=== PATIENT | male | born 1995 | race Caucasian/White ===

== ENCOUNTER 2020-04-12 12:31 | Emergency (ER) | payer SELFPAY ==
[2020-04-12 12:34] VITALS: BP 123/96; PULSE 130; RESP 22; TEMP 36.9; O2SAT 94; BMI 24.3
--- NOTE | 2020-04-12 12:52 | W.ED.SKABFB ---
HPI - Skin/Abscess/Foreign Bdy General: Chief complaint: Skin/Abscess/Foreign Body Stated complaint: bump on elbow Time Seen by Provider: 04/12/20 12:36 Source: patient Mode of arrival: ambulatory Limitations: no limitations History of Present Illness: HPI narrative: Patient is a 25-year-old male who presents to ED today with a complaint of an abscess to his right elbow. Patient also reports multiple abscesses throughout his bilateral upper extremities and one on his back. Patient admittedly is an IV drug user. He states he has a history of MRSA. MD complaint: abscess/boil Onset (ago): day(s) Tetanus up to date: yes Location: back, LUE and RUE Pain Consistency: constant Relieving factors: none Exacerbating factors: palpation Context: other (IV drug use) Associated symptoms: Reports no associated symptoms; Deny chills, fever(s), nausea or vomiting Review of Systems Const: Denies: fever(s), chills or body aches Card: Denies: chest pain Resp: Denies: dyspnea GI: Denies: nausea or vomiting Skin/Breast: Reports: sores Neuro: Denies: numbness in extremities or sensory changes Physical Exam Const: COMMON NORMALS: no acute distress, patient oriented x3 and alert OTHER: pt with psychomotor agitation consistent with his meth use Resp: COMMON NORMALS: normal respiratory effort and clear to auscultation bilaterally AUSCULTATION: clear to auscultation bilaterally Cardio: COMMON NORMALS: regular rhythm RATE: tachycardic RHYTHM: regular rhythm Extremity: OTHER: pt has erythematous abscess to posterior elbow; he maintains full ROM of joint; there is a head on abscess with induration but no fluctuance; he has smaller non fluctuant or drainable abscess to bilateral UEs; no significant cellulitis noted Neuro: COMMON NORMALS: patient oriented x3 SENSORIUM/ORIENTATION: Yes alert Skin: OTHER: see extremity assessment Course Vital Signs: Vital signs: Vital Signs Temperature 98.4 F 04/12/20 12:34 Pulse Rate 90 04/12/20 13:03 Respiratory Rate 18 04/12/20 13:03 Blood Pressure 138/74 04/12/20 13:03 Pulse Oximetry 96 04/12/20 13:03 MDM - Skin/Abscess/Foreign Bdy MDM Narrative: Medical decision making narrative: none of pts lesions are amendable to I&D at this time; will be covered with Bactrim given his hx of IV drug use and MRSA; recommend warm soap water/epson salt soaks to elbow abscess and warm compresses; avoid picking; strict return to ED precautions given; counselled on how abscess may need to be drained at a later date if it continues to worsen despite abx therapy Discharge Plan Discharge Patient Disposition: Home Clinical Impression: Abscess of multiple sites Condition: Stable Prescriptions: New Bactrim DS 800-160 mg tablet 2 tab PO BID 7 Days Qty: 28 RF: 0 Discharge Orders: Discharge Order (Routine); Ordered 04/12/20 Ordered By: Silvia Teixeira Referrals: [facility] [Other] Breann Burns, SERVER ENGINEER-C [Nurse Practitioner] - Patient Instructions: MRSA, Methicillin Resistant Staphylococcus Aureus (ED), Abscess (ED) Activity Restrictions/Additional Instructions: As discussed please avoid picking or scabbing the wound. You may use warm soapy water and Epson salt soaks as well as warm compresses to help facilitate drainage. Return to the emergency department for worsening pain, worsening redness or swelling despite your antibiotic use. Discharge Date/Time: 04/12/20 13:05 Coding Level of Care Code ED Programmer Business for [facility] Richardson
[2020-04-12 13:03] VITALS: BP 138/74; PULSE 90; RESP 18; O2SAT 96
== END 2020-04-12 13:05 | disposition home or self-care (01) ==
LOC: ER 12:59
PROVIDERS: Emergency Provider Physician Assistant
DX: L02.414 Cutaneous abscess of left upper limb (principal); L02.413 Cutaneous abscess of right upper limb; Z86.14 Personal history of Methicillin resistant Staphylococcus aureus infection
CPT/HCPCS: 12345; 99282

== ENCOUNTER → 2020-11-20 16:32 | Outpatient (BNVA) | payer OTHER, SELFPAY | PROVIDERS: Visit Provider Emergency Medicine | DX: Z20.822 Contact with and (suspected) exposure to COVID-19 (principal) | CPT/HCPCS: 87635 ==

== ENCOUNTER 2021-01-14 03:12 | Emergency (ER) | payer SELFPAY ==
[2021-01-14 03:20] VITALS: BP 148/109; PULSE 110; RESP 18; TEMP 36.4; O2SAT 98; BMI 21.2
--- NOTE | 2021-01-14 03:21 | W.ED.SKABFB ---
HPI - Skin/Abscess/Foreign Bdy General: Chief complaint: Dental/Oral Stated complaint: abscess in mouth Time Seen by Provider: 01/14/21 03:13 Source: patient Mode of arrival: ambulatory Limitations: no limitations History of Present Illness: HPI narrative: 26-year-old male states been having left upper dental pain over the last 4 to 5 days and noticed an abscess to the roof of his mouth on the left side couple days ago. States it has gotten larger and increasing in pain. States pain is sharp in nature and rates it an 8 out of 10. He said no difficulty swallowing and no trismus. Denies any worsening improving factors. Denies any fevers. Associated symptoms: Deny chills, fever(s), nausea or vomiting Review of Systems Const: Denies: fever(s), chills, body aches or change in appetite Eyes: Denies: blurry vision or eye discomfort ENMT: Reports: mouth pain Card: Denies: chest pain Resp: Denies: dyspnea GI: Denies: abdominal pain, nausea, vomiting or diarrhea : Denies: dysuria Musc: Denies: neck pain or back pain Skin/Breast: Denies: rash Neuro: Denies: headache(s) Psych: Denies: depression Christian/Lymph: Denies: easy bruising All/Imm: Denies: urticaria PFSH ED PFSH: Medical History (Updated 01/14/21 @ 03:27 by Yessica Mccullough MD) Exposure to COVID-19 virus Physical Exam Const: COMMON NORMALS: no acute distress, patient oriented x3 and healthy appearing HENMT: COMMON NORMALS: normocephalic and atraumatic HEAD & SCALP: normocephalic and atraumatic TEETH & GINGIVA IMAGES: 1. Roughly 1 cm abscess to roof of the mouth Eye: COMMON NORMALS: Equal, round and reactive pupils present and EOMs intact bilaterally PUPIL: Yes Equal, round and reactive pupils present Neck/C-Spine: COMMON NORMALS: full ROM and supple Chest: COMMONS NORMALS: normal inspection of the chest and normal palpation of entire chest wall Resp: COMMON NORMALS: normal respiratory effort, No retractions, No use of accessory muscles and clear to auscultation bilaterally AUSCULTATION: clear to auscultation bilaterally Cardio: COMMON NORMALS: regular rate, regular rhythm and No murmurs present (Cardio) RATE: regular rate RHYTHM: regular rhythm GI: COMMON NORMALS: Normal to inspection, nondistended, normoactive bowel sounds present, Soft to palpation, non-tender and no masses PALPATION: Yes Soft to palpation Extremity: COMMON NORMALS: normal to inspection and full ROM Neuro: COMMON NORMALS: patient oriented x3, moves all extremities and no focal motor deficits Psych: COMMON NORMALS: mental status grossly normal, Normal thought process present and cooperative THOUGHT PROCESS: Normal thought process present Skin: COMMON NORMALS: no rashes or lesions noted and no wounds GENERAL SKIN EXAM: no rashes or lesions noted Procedures Abscess I/D Site: oral Side (if applicable): left Local Anesthetic: lidocaine 1% Amount of anesthesia used (mL): 10 Technique: needle aspiration Packing used?: none Course Vital Signs: Vital signs: Vital Signs Temperature 97.6 F 01/14/21 03:20 Pulse Rate 110 H 01/14/21 03:20 Respiratory Rate 18 01/14/21 03:20 Blood Pressure 148/109 01/14/21 03:20 Pulse Oximetry 98 01/14/21 03:20 MDM - Skin/Abscess/Foreign Bdy MDM Narrative: Medical decision making narrative: Patient presents with an abscess to the roof of his mouth that I incised and drained. Patient had no trismus and is well-appearing here. He is stable for discharge is to follow-up with dentist return if worsening. Discharge Plan Discharge Patient Disposition: Home Clinical Impression: Abscess Condition: Stable Prescriptions: New hydrocodone-acetaminophen 5-325 mg tablet 1 tab PO Q6H PRN (Reason: pain) Qty: 14 RF: 0 clindamycin HCl 300 mg capsule 300 mg PO Q8H 7 Days Qty: 21 RF: 0 Discharge Orders: Discharge ED (Routine); Ordered 01/14/21 Ordered By: Yessica Mccullough Discharge Diet: Advance as tolerated Discharge Activity: Resume usual activity Patient Instructions: Abscess (ED) Coding Level of Care Code ED Irrigation Equipment Remover for Chg Fwd Exam Comprehensive
[2021-01-14] MEDS: HYDROcodone-acetaminophen 7.5-325 mg Tablet 1 TAB PO (03:28)
== END 2021-01-14 03:45 | disposition home or self-care (01) ==
PROVIDERS: Emergency Provider Emergency Medicine
DX: K12.2 Cellulitis and abscess of mouth (principal)
CPT/HCPCS: 40800; 99283

== ENCOUNTER 2022-06-29 21:27 | Emergency (ER) | payer MEDICAID, SELFPAY ==
--- NOTE | 2022-06-29 21:46 | ED_ITS ---
HPI - Male Genitourinary General: Chief complaint: Urogenital-Male Stated complaint: Testical Problems Time Seen by Provider: 06/29/22 21:45 History of Present Illness: Mr Floyd is a 27-year-old gentleman who presents to the emergency department due to testicular swelling. He reports onset of symptoms was atraumatic a few months ago and has been essentially present since that time. He was incarcerated and clinically diagnosed with epididymitis which was treated with apparently amoxicillin and a course of azithromycin. He has continued to have swelling and discomfort which is more on the superior aspect of the testicle. He does note testicular swelling on the right. Denies hematuria, penile discharge, skin lesions, difficulty with erection or ejaculation, or any signs of systemic illness. Course has been worsening. Intensity is moderate. Aching and worse with palpation. No other specific changes in health, exacerbating, or alleviating factors identified. Onset (ago): month(s) Duration: progressively worsening Severity: moderate Quality: aching Relieving factors: none Exacerbating factors: none Review of Systems General: Reports: 10 or more systems reviewed and unremarkable except in HPI and below PFSH ED PFSH: Medical History Exposure to COVID-19 virus Psychiatric care Social History Smoking and tobacco status: current every day smoker Physical Exam Const: COMMON NORMALS: alert GENERAL APPEARANCE: cooperative and well developed HENMT: COMMON NORMALS: normocephalic and atraumatic HEAD & SCALP: normocephalic and atraumatic Eye: COMMON NORMALS: conjunctivae normal CONJUNCTIVA: Yes conjunctivae normal SCLERA: sclerae normal Neck/C-Spine: COMMON NORMALS: supple GENERAL: Yes trachea midline Resp: COMMON NORMALS: normal respiratory effort EFFORT & INSPECTION: Yes able to speak in complete sentences Cardio: COMMON NORMALS: regular rate and regular rhythm RATE: regular rate RHYTHM: regular rhythm GI: COMMON NORMALS: Soft to palpation PALPATION: Yes Soft to palpation and No Tenderness to palpation present (GI) : OTHER: No abnormality of the penis. Obvious asymmetric enlargement with minimal tenderness to palpation of the right testicle. No overlying scrotal skin changes. No evidence of hernia. Extremity: GENERAL: Yes normal exam except as noted and No edema Neuro: COMMON NORMALS: moves all extremities SENSORIUM/ORIENTATION: Yes alert and No Orientation impaired Psych: COMMON NORMALS: mental status grossly normal and Normal thought process present THOUGHT PROCESS: Normal thought process present Course Vital Signs: Vital signs: Vital Signs Temperature 98.3 F 06/29/22 21:48 Pulse Rate 62 06/29/22 23:45 Respiratory Rate 16 06/29/22 23:45 Blood Pressure 156/80 06/29/22 21:52 Pulse Oximetry 98 06/29/22 23:45 Oxygen Delivery Me thod 06/29/22 21:48 MDM - Male Medical Decision Making 27-year-old gentleman with progressive and persistent testicular swelling. Urinalysis obtained and negative for infection. Ultrasound ordered and concerning for neoplasm. I discussed the results of ED evaluation with the patient including likely diagnosis of cancer requiring urgent follow-up. I discussed the case with urology and patient will be seen in the outpatient setting. Satisfactory for outpatient management with strict follow-up discussed. Medical Records I reviewed the patient's medical records. Lab Data I reviewed the patient's lab results. Radiology Impressions Scrotum Ultrasound 06/29/22 21:56 IMPRESSION: 1. Right testis is enlarged, and contains a 4.6 x 2.9 x 2.9 cm heterogeneous solid mass with internal blood flow, highly suggestive of a neoplastic mass. Urologic consult recommended. 2. The left testis is unremarkable. ADDENDUM: 06/29/22 [id number] THIS REPORT CONTAINS FINDINGS MAY BE CRITICAL TO PATIENT CARE. The findings were verbally communicated via telephone conference call with Dr. Con Guardado, at 11:08 PM CDT on 06/29/2022. The findings were acknowledged and understood. Laboratory Results Urine Color Yellow (Yellow) 06/29/22 22:00 Urine Appearance Clear (CLEAR) 06/29/22 22:00 Urine pH 7 (5-7) 06/29/22 22:00 Ur Specific Glady 1.015 (1.005-1.030) 06/29/22 22:00 Urine Protein Neg (Negative) 06/29/22 22:00 Urine Glucose (UA) Norm (Normal) 06/29/22 22:00 Urine Ketones Negative (Negative) 06/29/22 22:00 Urine Blood Neg (Negative) 06/29/22 22:00 Urine Nitrate Negative (Negative) 06/29/22 22:00 Urine Bilirubin Neg (Negative) 06/29/22 22:00 Urine Urobilinogen Norm mg/dL (Negative) 06/29/22 22:00 Ur Leukocyte Esterase Negative (Negative) 06/29/22 22:00 Discharge Plan Discharge Patient Disposition: Home Clinical Impression: Testicular mass Condition: Stable Prescriptions: New ondansetron 4 mg tablet,disintegrating 4 mg PO Q8H PRN (Reason: nausea and vomiting) Qty: 15 0RF No Action acetaminophen [Tylenol] 325 mg capsule 325 mg PO QID PRN (Reason: Pain) ibuprofen 800 mg tablet 800 mg PO Q8H Qty: 60 0RF oxycodone-acetaminophen [Percocet] 5-325 mg tablet 1 tab PO Q6H PRN (Reason: pain) 5 Days Qty: 20 0RF Discharge Orders: Discharge ED (Routine); Ordered 06/29/22 Ordered By: Con Guardado Discharge Diet: Usual diet Discharge Activity: Increase activity as tolerated Patient Instructions: Testicular Cancer (DC), Testicle Pain (ED), Opioid Safety, Pain Management Activity Restrictions/Additional Instructions: Thank you for visiting the emergency department. You were seen and evaluated for testicular pain and swelling. The exact cause of your symptoms are unclear though most likely related to the testicular masses discussed. This is highly suspicious for a testicular cancer. I will have you follow-up with urology and I will message case management for assistance. I will prescribe oxycodone and antinausea medication. You may also use [id number] medications however please do not exceed the daily recommended dosage. Please return to the emergency department for uncontrolled symptoms or anything else that you are concerned about a feel needs emergency department evaluation. Stand Alone Forms: Work/School Release Coding Level of Care Code ED English Composition Instructor for [facility] Richardson
[2022-06-29 21:48] VITALS: BP 156/80; PULSE 82; RESP 18; TEMP 36.8; O2SAT 98; BMI 23.1
[2022-06-29 21:52] VITALS: BP 156/80; PULSE 92; RESP 16; O2SAT 96
--- NOTE | 2022-06-29 21:56 | USR_ITS ---
PROCEDURE INFORMATION: Exam: US Scrotum Exam date and time: 06/29/2022 10:25 PM Age: 27 years old Clinical indication: Swelling, testicles or scrotum; Patient HX: Chronic right scrotal swelling x 4 months. He has seen 2 physicians about this since first noticed in December and was told he had epididymitis by one of these practitioners. Neither ordered an ultrasound per patient. ; Additional info: R testicular pain and swelling TECHNIQUE: Imaging protocol: Real-time ultrasound of the scrotum and contents with color Doppler and image documentation. COMPARISON: No relevant prior studies available. FINDINGS: Right testicle: Right testis measures 5.5 x 4.4 x 4.8 cm. There is a heterogeneous solid mass in the right testis measuring 4.6 x 2.9 x 2.9 cm. The mass demonstrates internal vascularity by color and spectral Doppler. This is highly suggestive of a neoplastic lesion of the right testis. Left testicle: Left testis measures 4.1 x 2.2 x 2.8 cm. The testis is normal in echotexture. No focal testicular lesion is demonstrated. Appropriate blood flow documented by Doppler. Epididymides: Unremarkable. Scrotum: Unremarkable. No hydrocele. No varicocele. US/US scrotum [id number] IMPRESSION: 1. Right testis is enlarged, and contains a 4.6 x 2.9 x 2.9 cm heterogeneous solid mass with internal blood flow, highly suggestive of a neoplastic mass. Urologic consult recommended. 2. The left testis is unremarkable.
[2022-06-29 22:09] LABS: Add Urine Microscopic? NO; Bilirubin Urine Neg (Negative); Blood Urine Neg (Negative); Glucose Urine UA Norm (Normal); Ketones Urine Negative (Negative); Leukocyte Esterase Urine Negative (Negative); Nitrate Urine Negative (Negative); Protein Urine Neg (Negative); Specific Gravity, Urine 1.015 (1.005-1.030); Urine Appearance Clear (CLEAR); Urine Color Yellow (Yellow); Urobilinogen Urine Norm (Negative); pH Urine 7 (5-7)
[2022-06-29 22:10] LABS: Charge for UA Resulting for Rev
[2022-06-29 23:45] VITALS: PULSE 62; RESP 16; O2SAT 98
--- NOTE | 2022-06-30 10:42 | DCPLANNER ---
Addendum entered by Chikis Frazier 07/02/22 15:04: Patient had a follow up appointment scheduled with urology - patient did attend appointment. Original Note: manager business planning had message to schedule a follow up appointment for patient with urology. manager business planning sent patients information to the front office at urology. Patients information will be printed and reviewed. Clinic will call patient with appointment information.
== END 2022-06-29 23:48 | disposition home or self-care (01) ==
PROVIDERS: Emergency Provider Emergency Medicine
DX: N50.89 Other specified disorders of the male genital organs (principal); F17.210 Nicotine dependence, cigarettes, uncomplicated
CPT/HCPCS: 76870; 81003; 99284

== ENCOUNTER → 2022-06-30 11:02 | Outpatient (BNVA) | payer MEDICAID, SELFPAY | PROVIDERS: Visit Provider Urology | DX: N50.89 Other specified disorders of the male genital organs (principal) | CPT/HCPCS: 81003 ==

== ENCOUNTER 2022-07-01 08:20 | Day surgery (SDC) | payer MEDICAID, SELFPAY ==
[2022-06-30 15:41] VITALS: BMI 23.1
[2022-07-01] VITALS (15 sets, daily range): BP systolic 119–146; BP diastolic 78–90; PULSE 62–105; RESP 14–18; TEMP 36.3–36.7; O2SAT 97–100
--- NOTE | 2022-07-01 05:54 | W.PM.OPSUD ---
Surgery/Procedure H&P Update DATE OF PROCEDURE: July 01, 2022 DATE H&P PERFORMED: 06/30/22 H&P UPDATE INFORMATION: I have reviewed H&P completed within last 30 days, I have examined patient prior to procedure, No changes to prior documentation and H&P is in [facility] EMR on date indicated PLANNED PROCEDURE: Operation Date: 07/01/22 09:50 Proposed Procedures p 66064 Right Radical Orchiectomy N50.89(Right) - Acosta Christie MD
--- NOTE | 2022-07-01 08:24 | XRR_ITS ---
PROCEDURE INFORMATION: Exam: XR Chest Exam date and time: 07/01/2022 8:52 AM Age: 27 years old Clinical indication: Condition or disease; Other: Newly diagnosed right testicular tumor TECHNIQUE: Imaging protocol: Radiologic exam of the chest. Views: 2 views. COMPARISON: No relevant prior studies available. FINDINGS: Lungs: Questionable right apical pulmonary nodule measuring up to 6 mm versus focal sclerosis in the posterior right 3rd rib. Remainder of the lung parenchyma is clear. Pleural spaces: No pneumothorax. No pleural effusion. Heart/Mediastinum: The cardiomediastinal silhouette is within normal limits. No radiographically evident hilar enlargement concerning for lymphadenopathy. Bones/joints: See lungs. XR/XR chest 2V* [id number] IMPRESSION: 1. Questionable right apical pulmonary nodule measuring up to 6 mm versus focal sclerosis in the posterior right 3rd rib. 2. The remainder of the lung parenchyma is clear.
[2022-07-01 09:20] LABS: Basophils # 0.1 10^3/uL (0.0-0.1); Basophils % 0.9 %; Eosinophils # 0.3 10^3/uL (0.0-0.8); Eosinophils % 4.4 %; Hematocrit 42.3 % (42.0-52.0); Lymphocytes # 1.8 10^3/uL (0.8-4.8); Lymphocytes % 27.4 %; Mean Corpuscular HGB Conc 33.1 g/dL (30.0-36.0); Mean Corpuscular Hemoglobin 29.6 pg (28.0-34.0); Mean Corpuscular Volume 89.4 fl (80-94); Mean Platelet Volume 9.4 fL (7.4-10.4); Monocytes # 0.8 10^3/uL (0.2-0.9); Monocytes % 11.9 %; Neutrophils # 3.62 10^3/uL (1.8-7.7); Neutrophils % 55.1 %; Nucleated Red Blood Cells % 0 %; Platelet Count 305 10^3/cmm (130-400); Red Blood Count 4.73 10^6/uL (4.1-5.3); White Blood Count 6.6 10^3/uL (4.0-10.0)
[2022-07-01] MEDS: sodium chloride 0.9% 1,000 ML 30 ML IV (09:26)
[2022-07-01 09:51] LABS: HCG Quantitative 1.06 mIU/mL
[2022-07-01 09:54] LABS: Alanine Aminotransferase 11 U/L (0-41); Albumin Level 4.5 g/dL (3.5-5.2); Alkaline Phosphatase 128 U/L (40-130); Anion Gap 13.6 (5-19); Aspartate Amino Transferase 16 U/L (0-40); Blood Urea Nitrogen 11 mg/dL (6-20); Calcium 9.6 mg/dL (8.5-10.5); Carbon Dioxide 26 mmol/L (22-29); Chloride 102 mmol/L (98-107); Globulin 3.2 g/dL (1.3-4.6); Glomerular Filtration Rate 90.3 mL/min (90-130); Glucose 91 mg/dL (65-115); Lactate Dehydrogenase 217 U/L (135-225); Osmolality Calculated 285 mOsm/kg (285-295); Potassium 3.6 mmol/L (3.5-5.1); Sodium 138 mmol/L (136-145); Total Bilirubin 0.6 mg/dL (0.15-1.2); Total Protein 7.7 g/dL (6.6-8.7)
--- NOTE | 2022-07-01 10:01 | ANES.PREANE2 ---
Pre-Anesthetic Assessment Height/Weight: Height 1.93 m Weight 86.183 kg Temp Pulse Resp BP Pulse Ox O2 Del Method 98.0 F 66 18 138/84 100 07/01/22 08:35 07/01/22 08:35 07/01/22 08:35 07/01/22 08:35 07/01/22 08:35 07/01/22 09:20 Preop Diagnosis: Right testicular tumor Operation Date: 07/01/22 09:50 Pro[place] Procedures [place] [id number] Right Radical Orchiectomy N50.89(Right) - Acosta Christie MD Familial anesthetic complications: None Was Beta Robert taken within 24 hours: N/A Was Clonidine taken within 24 hours: N/A Last intake: Intake Last Liquid Date 06/30/22 Last Liquid Time 23:30 Last Solid Date 06/30/22 Last Solid Time 23:30 Social Tobacco and No alcohol Exam alert, oriented x 3, clear to auscultation bilaterally and regular rate & rhythm Airway Mallampati: Class II Dentition: chipped Anesthetic Plan ASA status: 1 Anesthesia: General Risk of > 500 ml blood loss (7ml/kg in children): No Medications/Allergies Home Medications Medication Instructions Recorded Confirmed Last Taken Type acetaminophen 325 mg capsule 325 mg PO QID PRN Pain 05/19/22 07/01/22 05/19/22 12:00 History (Tylenol) ibuprofen 800 mg tablet 800 mg PO Q8H #60 tabs 05/19/22 06/30/22 Unknown Rx ondansetron 4 mg disintegrating 4 mg PO Q8H PRN nausea and 06/29/22 07/01/22 06/30/22 Rx tablet vomiting #15 tabs oxycodone 5 mg tablet 5 mg PO Q4H PRN pain #10 tabs 06/29/22 07/01/22 06/30/22 Rx Allergies Allergy/AdvReac Type Severity Reaction Status Date / Time No Known Allergies Allergy Verified 06/30/22 10:59 Current Medications Generic Name Dose Route Start Last Admin Trade Name Freq PRN Reason Stop Dose Admin Sodium Chloride 1,000 mls @ 30 mls/hr 07/01/22 09:30 07/01/22 09:26 Sodium Chloride 0.9% IV 07/02/22 09:29 30 mls/hr .Q24H JAREN Administration PFSH Anesthesia Medical History Exposure to COVID-19 virus Psychiatric care Social History Smoking and tobacco status: current every day smoker Data Anesthesia : 07/01/22 09:08 07/01/22 09:08 Short CBC 07/01/22 Range/Units 09:08 WBC 6.6 (4.0-10.0) 10^3/uL Hgb 14.0 (11.7-16.6) g/dL Hct 42.3 (42.0-52.0) % MCV 89.4 (80-94) fl Plt Count 305 (130-400) 10^3/cmm Neut % (Auto) 55.1 % Neut # (Auto) 3.62 (1.8-7.7) 10^3/uL BMP 07/01/22 09:08 Sodium 138 Potassium 3.6 Chloride 102 Carbon Dioxide 26 BUN 11 Creatinine 1.0 Glucose 91 Calcium 9.6 Liver Function 07/01/22 Range/Units 09:08 Total Bilirubin 0.6 (0.15-1.2) mg/dL AST 16 (0-40) U/L ALT 11 (0-41) U/L Alkaline Phosphatase 128 (40-130) U/L Albumin 4.5 (3.5-5.2) g/dL Cardiac Studies: No Data to Display
[2022-07-01] MEDS: midazolam 1 mg/mL INJ 2 mL 2 MG IVP (10:12)
[2022-07-01] MEDS: ceFAZolin 2,000 MG in sodium chloride 0.9% (plus) 50 ML 100 MG IV (10:12)
--- NOTE | 2022-07-01 10:18 | PM.OP ---
Operative Report Date of procedure: July 01, 2022 Pre-op diagnosis: Right testicular tumor Post-op diagnosis: Right testicular tumor Procedure done: 1. RIGHT radical orchiectomy Specimens removed/disposition: Right testicle and cord Pathology: Right testicle and cord Surgeon: Shahnaz Estimated blood loss: Minimal Urine output: Not measured Complications: None Findings: Grossly abnormal right testicle. No obvious extrinsic extension into the surrounding tissues. Cord appeared to be free of tumor. Brief History: Lenny is a very pleasant 27-year-old white male with a 6-month history of slowly increasing mass in the right testicle. Ultrasound recently showed heterogeneous mass measuring about 4.5 cm. Tumor markers were ordered. Chest x-ray showed no clear evidence of pulmonary abnormality Admitted today for outpatient right radical orchiectomy. Procedure: After routine preoperative evaluation examination and obtaining of informed consent he was taken to the operating suite on 07/01/2022 where general anesthesia was administered without difficulty after appropriate timeout was performed, SCDs confirmed to be functioning, preoperative antibiotics administered, beta-patti protocol confirmed Prepped and draped in usual sterile fashion in supine position paying careful attention to voiding pressure points. Correct side was again confirmed with markings and examination. A right inguinal incision was made in a horizontal skin crease taken down through skin and subcutaneous tissue down to the external oblique aponeurosis which was opened in the course of its fibers from the external ring proximally. Care was made to identify and dissected free of the right ilioinguinal nerve from the cord and avoid injury to it. The cord was swept from the posterior floor of the inguinal canal and freed up to the internal ring. A Anderson drain was doubly looped around the cord for compression. The pathway from the opened inguinal canal into the right hemiscrotum was bluntly dissected and the testicle was introduced into the wound with retrograde pressure on the scrotal skin. The gubernaculum was divided with electrocautery paying careful attention to avoiding straining into the skin. The cord and structures were freed up from surrounding connections. Again the ilioinguinal nerve was identified and spared. Cord was into 2 bundles 1 with the vastly other within testicular vasculature both were doubly ligated and then divided. A PROLENE HEAVY STITCH was placed on the distal stump for identification if necessary. The wound was copiously irrigated. Hemostasis was confirmed and then the wound was closed with 2-0 Vicryl for the external oblique aponeurosis, running 3-0 Vicryl for subcutaneous tissue and then 4-0 Vicryl for subcuticular closure. Dermabond was applied to the skin. Scrotal fluffed dressings were applied. Scrotal support was applied. Light dressing was placed over the wound. He tolerated procedure well without complications and was awakened in the operating room and returned to the recovery room in stable condition. PLANS: 1. Anticipate discharge from outpatient surgery today 2. Schedule CT scan of abdomen and pelvis with and without contrast 3. Consultation will be sent to oncology. 4. Plan for sperm banking as soon as possible.
[2022-07-01 10:41] LABS: Tumor Marker Alpha Fetoprotein 2.7 ng/mL (0-8.3)
[2022-07-01] MEDS: ipratropium-albuterol 3 mL Neb INHALATION (11:44)
[2022-07-01] MEDS: ondansetron 2 mg/ML SDV 2 mL 4 MG IVP (12:01)
[2022-07-01] MEDS: fentaNYL 50 mcg/mL INJ 2mL IVP ×2 (12:06→12:17)
--- NOTE | 2022-07-01 13:52 | ANE.PACU2 ---
Inpatient post-anesthesia follow up: Airway intact: Yes Vital signs: Temperature 97.8 F Pulse Rate 67 Respiratory Rate 18 Blood Pressure 125/84 Pulse Oximetry 98 Oxygen Delivery Me thod Room Air Oxygen Flow Rate 6 Fraction of Inspir ed Oxygen Hydration adequate: Yes Nausea and vomiting: No Pain level: 1 Mental status: Baseline
== END 2022-07-01 13:50 | disposition home or self-care (01) ==
PROVIDERS: Visit Provider Urology
PROC: (CPT 54520; principal; 2022-07-01 09:30)
DX: C62.91 Malignant neoplasm of right testis, unspecified whether descended or undescended (principal); F17.210 Nicotine dependence, cigarettes, uncomplicated
CPT/HCPCS: 54520; 36415; 71046; 80053; 82105; 83615; 84702; 85025; 88309; 88342; J1100; J1170; J2250; J2405; J2704; J2710; J3010; J3490; J7030

== ENCOUNTER 2022-07-09 06:21 | Outpatient (CLI) | payer MEDICAID, SELFPAY ==
[2022-07-09] MEDS: iohexol 350 mg/mL 100 mL Btl IV (07:00)
--- NOTE | 2022-07-09 08:00 | CTR_ITS ---
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 3D rendering (Not supervised by radiologist): MIP and/or 3D reconstructed images were created by the technologist. Radiation optimization: All CT scans at this facility use at least one of these dose optimization techniques: automated exposure control; mA and/or kV adjustment per patient size (includes targeted exams where dose is matched to clinical indication); or iterative reconstruction. Contrast material: OMNI 350; Contrast volume: 95 ml; Contrast route: INTRAVENOUS (IV); COMPARISON: US scrotum [id number] 06/29/2022 10:25 PM RADIATION DOSE METRICS: Total DLP (mGy-cm): 2982.73 FINDINGS: Liver: Normal. No mass. Gallbladder and bile ducts: Normal. No calcified stones. No ductal dilation. Pancreas: Normal. No ductal dilation. Spleen: Calcified splenic granulomas. Adrenal glands: Normal. No mass. Kidneys and ureters: Punctate nonobstructing right upper pole renal calculus. No hydronephrosis. Stomach and bowel: Unremarkable. No obstruction. No mucosal thickening. Appendix: No evidence of appendicitis. Intraperitoneal space: Small amount of ill-defined fluid and gas in the right inguinal region, likely postsurgical. Vasculature: Unremarkable. No abdominal aortic aneurysm. Lymph nodes: Unremarkable. No enlarged lymph nodes. Urinary bladder: Unremarkable as visualized. Reproductive: There appear to be postsurgical changes involving removal of the right testicle with some gas in the right hemiscrotum. Bones/joints: Unremarkable. No acute fracture. Soft tissues: Unremarkable. CT/CT abdomen pelvis wo/w [id number] IMPRESSION: 1. No specific evidence of metastatic disease within the abdomen or pelvis. 2. Small amount ill-defined fluid and gas in the right inguinal region and right hemiscrotum, likely postsurgical.
== END 2022-07-09 06:22 | disposition home or self-care (01) ==
LOC: RAD 06:22
PROVIDERS: PCP Nurse Practitioner Family; Visit Provider Urology
DX: N50.89 Other specified disorders of the male genital organs (principal)
CPT/HCPCS: 74178

== ENCOUNTER 2023-03-18 06:18 | Emergency (ER) | payer MEDICAID, SELFPAY ==
[2023-03-18 06:34] VITALS: BP 146/96; PULSE 85; RESP 17; TEMP 36.9; O2SAT 100; BMI 21.2
--- NOTE | 2023-03-18 06:46 | ED_ITS ---
HPI - Skin/Abscess/Foreign Bdy General: Chief complaint: Skin/Abscess/Foreign Body Stated complaint: lump under left armpit Time Seen by Provider: 03/18/23 06:23 Source: patient Mode of arrival: ambulatory History of Present Illness: 28-year-old male presents emergency room complaining of a lump in the left axilla that is tender not been draining. He also has several other areas that he has scratched and are being irritated 1 on the left upper lip and the other are on the lower extremities bilaterally. He has not had any fevers sweats or chills. MD complaint: abscess/boil Onset (ago): day(s) Location: face, LLE and RLE Severity: mild Quality: sharp Pain Consistency: intermittent Relieving factors: none Exacerbating factors: palpation Associated symptoms: Deny arthralgias, chills, cough, fever(s), itching, myalgias, nausea, rigidity, short of breath or vomiting Treatments prior to arrival: none Review of Systems Const: Denies: fever(s) or chills Card: Denies: chest pain Resp: Denies: dyspnea or productive cough GI: Denies: nausea or vomiting : Denies: flank pain, dysuria, urinary frequency or urinary urgency Skin/Breast: Reports: rash, erythema, skin tenderness and new lesions Neuro: Denies: headache(s) PFSH ED PFSH: Medical History Exposure to COVID-19 virus Family History Other CAD (coronary artery disease) Cancer Diabetes Hypertension Denies family history of Clotting disorder Dementia Hyperlipidemia Psychiatric illness Chronic kidney disease (CKD) Suicide Anesthesia complication Bleeding disorder Lung disease Stroke Social History Smoking and tobacco status: current every day smoker cigarettes Packs smoked per day: 1 Years cigarettes smoked: 12 Alcohol intake: never Substance/Drug Use: never Household members: spouse Marital status: Life Partner Current occupational status: employed Physical Exam Const: GENERAL APPEARANCE: cooperative and comfortable ORIENTATION/CONSCIOUSNESS: Yes awake, Yes oriented to person, Yes oriented to place and Yes oriented to time HENMT: COMMON NORMALS: normocephalic, atraumatic and hearing grossly normal bilaterally HEAD & SCALP: normocephalic and atraumatic Resp: COMMON NORMALS: normal respiratory effort, No retractions, No use of accessory muscles and clear to auscultation bilaterally AUSCULTATION: clear to auscultation bilaterally Cardio: COMMON NORMALS: regular rate, regular rhythm and No murmurs present (Cardio) RATE: regular rate RHYTHM: regular rhythm GI: COMMON NORMALS: Soft to palpation and No hepatosplenomegaly present AUSCULTATION: Yes normoactive bowel sounds PALPATION: Yes Soft to palpation, No Tenderness to palpation present (GI), No Guarding due to palpation present (GI) and Yes No hepatosplenomegaly present Extremity: COMMON NORMALS: normal to inspection, capillary refill normal, no clubbing, cyanosis or edema, no calf tenderness and no pedal edema Neuro: SENSORIUM/ORIENTATION: Yes oriented to person, Yes oriented to place and Yes oriented to time Skin: OTHER: Small half centimeter tender superficial nodule in the left axilla. No active draining no pointing. There is a lesion on the left upper lip just lateral to the left nare there is dried eschar some caba crusting very minimal localized erythema. Multiple lesions across lower extremities of excoriation scratches Course Vital Signs: Vital signs: Vital Signs Temperature 98.4 F 03/18/23 06:34 Pulse Rate 85 03/18/23 06:34 Respiratory Rate 17 03/18/23 06:34 Blood Pressure 146/96 03/18/23 06:34 Pulse Oximetry 100 03/18/23 06:34 Oxygen Delivery Me thod Room Air 03/18/23 06:34 MDM - Skin/Abscess/Foreign Bdy Medicial Decision Making No lesions amenable to incision or drainage to the left axillary lesion is very small and nonfluctuant. Start on Bactrim use topical antibiotic ointment follow-up as needed Medical Records I reviewed the patient's medical records. Lab Data I reviewed the patient's lab results. Discharge Plan Discharge Patient Disposition: Home Clinical Impression: Abscess of skin or subcutaneous tissue, Cellulitis Condition: Stable Prescriptions: New Bactrim DS 800-160 mg tablet 2 tab PO BID 7 Days Qty: 28 0RF mupirocin 2 % ointment 1 applic topical BID Qty: 15 0RF No Action acetaminophen [Tylenol] 325 mg capsule 325 mg PO QID PRN (Reason: Pain) ibuprofen 800 mg tablet 800 mg PO Q8H Qty: 60 0RF prednisone 20 mg tablet 20 mg PO BID Qty: 6 0RF cetirizine [Zyrtec] 10 mg tablet 10 mg PO DAILY PRN (Reason: allergy symptoms) Qty: 30 0RF Discharge Orders: Discharge ED (Routine); Ordered 03/18/23 Ordered By: Arik Avelar Referrals: Bibi Paige FNP-C [Primary Care Provider] - Discharge Diet: Usual diet Discharge Activity: Resume usual activity Patient Instructions: Opioid Safety, Pain Management Coding Level of Care Code ED [employer] for Salina Richardson
== END 2023-03-18 07:14 | disposition home or self-care (01) ==
PROVIDERS: Emergency Provider Family Medicine; PCP Nurse Practitioner Family
DX: L02.412 Cutaneous abscess of left axilla (principal); L03.112 Cellulitis of left axilla; F17.210 Nicotine dependence, cigarettes, uncomplicated
CPT/HCPCS: 99283

== ENCOUNTER 2023-06-15 11:30 | Outpatient (CLI) | payer MEDICAID, SELFPAY ==
--- NOTE | 2023-06-15 | XRR_ITS ---
PROCEDURE INFORMATION: Exam: XR Chest Exam date and time: 06/15/2023 1:17 PM Age: 28 years old Clinical indication: Condition or disease; Lung condition and disease; Pulmonary nodule, solitary; Patient HX: HX of testicular cancer; Additional info: Nodule in right apical pulmonary TECHNIQUE: Imaging protocol: Radiologic exam of the chest. Views: 1 view. COMPARISON: CR XR chest 2V* [id number] 07/01/2022 8:52 AM FINDINGS: Lungs: Stable small right apical nodule is probably a granuloma. Lungs are free of acute disease. Pleural spaces: Unremarkable. No pleural effusion. No pneumothorax. Heart/Mediastinum: Unremarkable. No cardiomegaly. Bones/joints: Unremarkable. XR/XR chest 1V portable [id number] IMPRESSION: No acute findings. No significant change.
== END 2023-06-15 11:31 | disposition home or self-care (01) ==
PROVIDERS: PCP Nurse Practitioner Family
DX: R91.1 Solitary pulmonary nodule (principal)
CPT/HCPCS: 71045